=== PATIENT | female | born 1995 | race Caucasian/White ===

== ENCOUNTER 2021-06-21 14:37 | Outpatient (CLI) | payer SELFPAY ==
--- NOTE | 2021-06-21 14:47 | XR_ITS ---
WS: [id number] Exam: XR elbow RT min 3V* [id number] Date/Time of Exam: 06/21/2021 2:48 PM Reason For Exam: RIGHT ELBOW FOREIGN BODY There is a metallic soft tissue foreign body identified in the anterior soft tissues along the lower humerus. This may represent a wire or needle fragment. No bony injury noted. No joint effusion. XR/XR elbow RT min 3V* [id number] IMPRESSION: 1. 7 mm linear metallic soft tissue foreign body in the anterior soft tissues a long the lower humerus. This may represent a wire or needle fragment. The exam is otherwise negative.
== END 2021-06-21 14:38 | disposition home or self-care (01) ==
PROVIDERS: Visit Provider Family Medicine
DX: S50.351A Superficial foreign body of right elbow, initial encounter (principal); X58.XXXA Exposure to other specified factors, initial encounter
CPT/HCPCS: 73080